=== PATIENT | female | born 1955 | race Caucasian/White ===

== ENCOUNTER → 2018-03-17 | Outpatient (CLI) | payer BC ==
[2016-08-27 12:56] VITALS: BMI 46.8
[~2018-03-17] MED LIST: ACET500T68 PO; ALB17R INH; ALB6.7R INH; ASPI-757 PO; BENZ100C4 PO; BIS10S PR; CEFU250T67 PO; CEFU500T50 PO; CELE-1 PO; CIPR-214 PO; CIPR-344 PO; CIPR-345 PO; CYCL7.5T21 PO; DOCU-416 PO; DUL100/5PT INH; ENO40I SQ; FAMO20TA28 PO; FLUT16SP19 NS; FLUT1DIS28 IH; HYDR-318 PO; HYDR-385 PO; HYDR-389 PO; IBUP-56 PO; IBUP600T22 PO; IBUP800T37 PO; LOR7.5/325 PO; METH4TAB66 PO; MOM PO; NEB5 PO; NS(*) 0.9% 1000 ML BAG 1,000 ML IV PRN; NYST1POW24 PO; NYST1POW27 MC; NYST1POW29 TP; OMEP-125 PO; OMEP40CA48 PO; OXYC-823 PO; PANT40TA65 PO; PER PO; PHEN200T32 PO; PRO25 PO; RANI-315 PO
[2018-03-17 13:27] VITALS: BP 140/85
[2018-03-17 15:15] VITALS: BP 133/75
== END ==
LOC: SPU 13:19
PROVIDERS: ATTEND Internal Medicine
DX: R39.9 Unspecified symptoms and signs involving the genitourinary system (principal); R19.7 Diarrhea, unspecified; R10.9 Unspecified abdominal pain
CPT/HCPCS: 96360; 96361; J7030

== ENCOUNTER → 2018-03-17 | Outpatient (CLI) | payer BC ==
[2016-08-27 12:56] VITALS: BMI 46.8
[~2018-03-17] MED LIST changes: -NS(*) 0.9% 1000 ML BAG 1,000 ML IV PRN
[2018-03-17 12:09] LABS: PLATELET COUNT, AUTOMATED 232 K/uL (150-450)
== END ==
LOC: LAB 11:36
PROVIDERS: ATTEND Internal Medicine
DX: R10.9 Unspecified abdominal pain (principal); R19.7 Diarrhea, unspecified
CPT/HCPCS: 36415; 81001; 82040; 82150; 82247; 82274; 82310; 82374; 82435; 82565; 82947; 83630; 83690; 84075; 84132; 84155; 84295; 84443; 84450; 84460; 84520; 85025; 87045; 87205; 87324; 87449